=== PATIENT | female | born 1950 | race African-American/Black ===

== ENCOUNTER 2019-12-12 06:31 | Day surgery (SDC) | payer MEDICARE, SELFPAY ==
[2019-12-07 09:55] VITALS: BMI 29.4
--- NOTE | 2019-12-11 11:39 | HO.ANESPROP2 ---
Documented by User: Summer Dumont 12/11/19 11:39 HPI - Anesthesia Eval Consult details Narrative: 69yo F for Colonoscopy PMFSH Past Medical History Medical History Arthritis Asthma Elevated cholesterol HTN (hypertension) Sarcoidosis of lung Sleep apnea Venous insufficiency Surgical History Surgical History H/O colonoscopy H/O shoulder surgery History of ankle surgery History of lung surgery Hx of myomectomy Hx of tonsillectomy Social History Social History Smoking Status: Former smoker Years Smoked: 0 Smoked in Last 30 Days: No Smoking Quit Date: 1977 Patient Interested in Nicotine Replacement: No Patient Given Instructions on How to Stop Smoking: No Second Hand Smoke Exposure: No Use of substances other than those prescribed or required for medical reasons: Yes Substance Use Frequency: Occasionally Advance Directives Information Provided: No Recently lost weight without trying: No Meds Allergies Allergy/AdvReac Type Severity Reaction Status Date / Time bee pollen [BEE STINGS] Allergy Severe DIFFICULTY Verified 12/12/19 07:03 BREATHING grapefruit Allergy Severe Swelling Verified 12/07/19 10:03 Home Medications Medication Instructions Recorded Confirmed Type Lactobacillus acidophilus 1.5 mg PO DAILY 12/07/19 12/07/19 History [Probiotic Acidophilus] albuterol sulfate [ProAir 2 puff INHALATION Q6H PRN 12/07/19 12/12/19 History RespiClick] amlodipine 1 tab PO DAILY 12/07/19 12/07/19 History aspirin [Aspirin Low-Strength] 81 mg PO DAILY 12/07/19 12/12/19 History atorvastatin 1 tab PO DAILY 12/07/19 12/07/19 History cholecalciferol (vitamin D3) 50 mcg PO DAILY 12/07/19 12/07/19 History [Vitamin D3] enalapril-hydrochlorothiazide 1 tab PO DAILY 12/07/19 12/07/19 History fluticasone propionate [Flovent 1 puff INHALATION BID 12/07/19 12/07/19 History HFA] metoprolol tartrate 1 tab PO BID 12/07/19 12/07/19 History legxklpylupw-okmozxgj-vzaxol 1 tab PO DAILY 12/07/19 12/07/19 History [Centrum Silver] Exam Exam Date and Time: December 11, 2019 1139 Height,Weight and Vital Signs: Height 5 ft 7 in Weight 85.275 kg Assessment and Plan Assessment Anesthesia Assessment: Chart Reviewed Documented by User: Lin Dickson 12/12/19 07:33 [facility] Past Medical History Medical History Arthritis Asthma Elevated cholesterol HTN (hypertension) Sarcoidosis of lung Sleep apnea Venous insufficiency Surgical History Surgical History H/O colonoscopy H/O shoulder surgery History of ankle surgery History of lung surgery Hx of myomectomy Hx of tonsillectomy Social History Social History Smoking Status: Former smoker Years Smoked: 0 Smoked in Last 30 Days: No Smoking Quit Date: 1977 Patient Interested in Nicotine Replacement: No Patient Given Instructions on How to Stop Smoking: No Second Hand Smoke Exposure: No Use of substances other than those prescribed or required for medical reasons: Yes Substance Use Frequency: Occasionally Advance Directives Information Provided: No Recently lost weight without trying: No Meds Allergies Allergy/AdvReac Type Severity Reaction Status Date / Time bee pollen [BEE STINGS] Allergy Severe DIFFICULTY Verified 12/12/19 07:03 BREATHING grapefruit Allergy Severe Swelling Verified 12/07/19 10:03 Home Medications Medication Instructions Recorded Confirmed Type Lactobacillus acidophilus 1.5 mg PO DAILY 12/07/19 12/07/19 History [Probiotic Acidophilus] albuterol sulfate [ProAir 2 puff INHALATION Q6H PRN 12/07/19 12/12/19 History RespiClick] amlodipine 1 tab PO DAILY 12/07/19 12/07/19 History aspirin [Aspirin Low-Strength] 81 mg PO DAILY 12/07/19 12/12/19 History atorvastatin 1 tab PO DAILY 12/07/19 12/07/19 History cholecalciferol (vitamin D3) 50 mcg PO DAILY 12/07/19 12/07/19 History [Vitamin D3] enalapril-hydrochlorothiazide 1 tab PO DAILY 12/07/19 12/07/19 History fluticasone propionate [Flovent 1 puff INHALATION BID 12/07/19 12/07/19 History HFA] metoprolol tartrate 1 tab PO BID 12/07/19 12/07/19 History qfozqnyqvyaw-qcufzjxy-akiflt 1 tab PO DAILY 12/07/19 12/07/19 History [Centrum Silver] Exam Height,Weight and Vital Signs: Vital Signs Temp Pulse Resp BP Pulse Ox 12/12/19 07:15 97.4 F 62 16 145/65 H 97 Airway Mallampati Class: II TM Dist: >3cm Neck ROM: Full Heart: RRR Lungs: CTAB Assessment and Plan Assessment Anesthesia Assessment: Anesthesia Plan Discussed and Chart Reviewed Final Anesthetic Review ASA Class: III Final Preanesthetic Review: No Changes in Pt Med Stat, Meds/Allgs Chart Reviewed, Consent Obtained/Reviewed and Anes Risks/Benef Reviewed Patient Risk: Intermediate Procedure Risk: Low Anesthetic Plan Anesthetic Plan: MAC: Disposition: Standard PACU
[2019-12-12] MEDS: Lactated Ringers 1,000 ML 100 ML IVCONT (07:14)
[2019-12-12 07:15] VITALS: BP 145/65; PULSE 62; RESP 16; TEMP 36.3; O2SAT 97
[2019-12-12 07:17] VITALS: BMI 29.4
--- NOTE | 2019-12-12 07:33 | MHC.SHP ---
Pre-Procedural Eval Section B Chief Complaint: HX of Polyps Details of Present Illness: Colon cancer screening--hx tubular adenoma New med Metoprolol for HTN Relevant Family History (Specify if Yes): No Relevant Social History: None Present Medications: see Short Stay Collaborative assessment Medical History: Significant History (Sarcoid, Hypertension) History of Previous Operations: Relevant previous surgery/procedure and date(s) (colonoscopy 2014 WITH TUBULAR ADENOMAS) Allergies: Allergies Allergy/AdvReac Type Severity Reaction Status Date / Time bee pollen [BEE STINGS] Allergy Severe DIFFICULTY Verified 12/12/19 07:03 BREATHING grapefruit Allergy Severe Swelling Verified 12/07/19 10:03 Review of Systems Sugical H&P ROS: Negative: Constitution, Cardiovascular, Respiratory, Psychiatric and Gastrointestinal Exam Surgical H&P Exam: Normal: HEENT, Normal: Heart, Normal: Lungs, Normal: Extremities, Normal: Abdomen and Normal: Skin Plan Diagnosis/Plan: Unchanged Patient has been examined and remains a candidate for the planned procedure- yes
--- NOTE | 2019-12-12 07:38 | MHC.SHP ---
Pre-Procedural Eval Section B Chief Complaint: HX of Polyps Details of Present Illness: Colon cancer screening-2015--colo with removal tubular adenomas Patient has had no acute illnesses or medication changes since her last TV done on 09/20/19 Relevant Family History (Specify if Yes): No Relevant Social History: None Present Medications: see Short Stay Collaborative assessment Medical History: Significant History (Sarcoid, Asthma, Hypertension) History of Previous Operations: Relevant previous surgery/procedure and date(s) (Colonoscopy--2014-removal 2 Tubular adenomas.) Allergies: Allergies Allergy/AdvReac Type Severity Reaction Status Date / Time bee pollen [BEE STINGS] Allergy Severe DIFFICULTY Verified 12/12/19 07:03 BREATHING grapefruit Allergy Severe Swelling Verified 12/07/19 10:03 Review of Systems Sugical H&P ROS: Negative: Constitution, Cardiovascular, Respiratory and Gastrointestinal Exam Surgical H&P Exam: Normal: HEENT, Normal: Heart, Normal: Lungs, Normal: Extremities and Normal: Abdomen Plan Diagnosis/Plan: Unchanged Patient has been examined and remains a candidate for the planned procedure--YES
[2019-12-12 08:20] VITALS: BP 147/90; PULSE 63; RESP 12; TEMP 37.4; O2SAT 98
--- NOTE | 2019-12-12 08:20 | PM.PROC ---
Brief Operative Note Date of procedure: 12/12/19 Pre-op diagnosis: Colon cancer screening Hx of Tubular adenomas Post-op diagnosis: other (Cecal polyp, Diverticulosis, Internal Hemorrhoids.) Procedure: COLONSCOPY WITH EXCISIONAL POLYPECTOMY W/ COLD BX FORCEPS Anesthesia: MAC (NILESH ADAME) Surgeon: Margarita Maya Estimated blood loss (mL): 5 Pathology: other (CECAL POLYP) Condition: stable Disposition: PACU
[2019-12-12 08:35] VITALS: BP 142/75; PULSE 59; RESP 14; TEMP 37.4; O2SAT 99
--- NOTE | 2019-12-12 09:16 | HO.POSTANES ---
Post Anesthesia Evaluation Post Anesthesia Evaluation Vital Signs: Vital Signs Temp Pulse Resp BP Pulse Ox 12/12/19 08:35 99.4 F 59 14 142/75 H 99 12/12/19 08:20 99.4 F 63 12 147/90 H 98 12/12/19 07:15 97.4 F 62 16 145/65 H 97 Anesthesia: Monitored Mental Status: Awake Pain Control: Satisfactory Nausea/Vomiting: None Hydration: Adequate Anesthesia-Related Issues: No Anes. Related Issues
--- NOTE | 2019-12-12 17:04 | OP_ITS ---
[facility] OPERATIVE REPORT PATIENT NAME: Genevieve Leslie ? DATE OF : 1950 LOCATION: [facility] DATE OF SERVICE: 12/12/2019 PCP: OPERATIVE REPORT Page 2 SURGEON: Margarita Maya MD PREOPERATIVE DIAGNOSIS: POSTOPERATIVE DIAGNOSIS: PROCEDURE PERFORMED: ESTIMATED BLOOD LOSS: Less than 5 cc. COMPLICATIONS: None. ANESTHESIA: ANESTHESIOLOGIST: July Del Real.July Del Real. ASSISTANTS: SPECIMENS: Specimen removed, cecal polyp. CATERING TRUCK DRIVER: Margarita Maya M.D. PROCEDURES PERFORMED: Colonoscopy with excisional polypectomy x1. CONDITION: Postop, stable. FINDINGS: Digital rectal exam revealed positive sphincter tone. Video colonoscope was introduced without difficulty. It was navigated into the rectosigmoid area where there were scattered diverticula. The scope was slowly moved through the ileocecal valve and up to descending, transverse, and ascending colon down into cecum. Appendiceal orifice was seen. Ileocecal valve was seen. Prep was good to excellent. Ileocecal diminutive polyp, which was removed excisionally with cold biopsy forceps. Continuing to withdraw the scope. Good rotational views. No additional lesions . PLAN: Current recommendations, repeat asymptomatic screening will continue to be 5 years. TYPE OF ANESTHESIA: Monitored. ROAD TRAFFIC CONTROLLER: None. GRAFT OR IMPLANTS: None. Margarita Maya MD MEN/MODL / [id number] MTDGuanaco
--- NOTE | 2020-03-04 17:04 | OP_ITS ---
SURGEON: Margarita Maya MD PREOPERATIVE DIAGNOSIS: Hx of Tubular Adenomas, Colon cancer screening. POSTOPERATIVE DIAGNOSIS: Cecal polyp; Hx of tubular adenomas PROCEDURE PERFORMED: Colonoscopy with excisional polypectomy ESTIMATED BLOOD LOSS: Less than 5 cc. COMPLICATIONS: None. ANESTHESIA: Monitored ANESTHESIOLOGIST: July Del Real CRNA ASSISTANTS:NONE SPECIMENS: Specimen removed, cecal polyp. SHREDDED FILLER CIGAR MAKER MACHINE: Margarita Maya M.D. PROCEDURES PERFORMED: Colonoscopy with excisional polypectomy x1. CONDITION: Postop, stable. FINDINGS: Digital rectal exam revealed positive sphincter tone. Video colonoscope was introduced without difficulty. It was navigated into the rectosigmoid area where there were scattered diverticula. The scope was slowly moved through the ileocecal valve and up to descending, transverse, and ascending colon down into cecum. Appendiceal orifice was seen. Ileocecal valve was seen. Prep was good to excellent. Cecal diminutive polyp, which was removed excisionally with cold biopsy forceps. Continuing to withdraw the scope. Good rotational views. No additional lesions were encountered. PLAN: Current recommendations, repeat asymptomatic screening will continue to be 5 years. GRAFT OR IMPLANTS: None. Margarita Maya MD MEN/MODL / [id number] MTDD
== END 2019-12-12 09:30 | disposition home or self-care (01) ==
PROVIDERS: Visit Provider Internal Medicine Gastroenterology
PROC: 0DJD8ZZ Inspection of Lower Intestinal Tract, Via Natural or Artificial Opening Endoscopic (ICD-10-PCS; CPT 45378; principal; 2019-12-12 07:30)
DX: Z12.11 Encounter for screening for malignant neoplasm of colon (principal); Z86.010 Personal history of colon polyps; D12.0 Benign neoplasm of cecum; K57.30 Diverticulosis of large intestine without perforation or abscess without bleeding; K64.8 Other hemorrhoids; I10 Essential (primary) hypertension; J45.909 Unspecified asthma, uncomplicated; Z87.09 Personal history of other diseases of the respiratory system; E78.00 Pure hypercholesterolemia, unspecified; G47.30 Sleep apnea, unspecified; Z79.51 Long term (current) use of inhaled steroids; Z79.82 Long term (current) use of aspirin; Z79.899 Other long term (current) drug therapy; Z87.891 Personal history of nicotine dependence
CPT/HCPCS: 45380; 88305

== ENCOUNTER → 2020-01-03 09:21 | Outpatient (BNVA) | payer MEDICARE, SELFPAY | PROVIDERS: PCP Internal Medicine; Referring Provider Internal Medicine; Visit Provider Physician Assistant | DX: D12.0 Benign neoplasm of cecum (principal); K64.8 Other hemorrhoids; K57.30 Diverticulosis of large intestine without perforation or abscess without bleeding; Z98.890 Other specified postprocedural states | CPT/HCPCS: Q3014 ==

== ENCOUNTER 2020-08-08 10:21 | Outpatient (REF) | payer MEDICARE, SELFPAY ==
--- NOTE | ~2020-08-08 | MM_ITS ---
EXAMINATION: MM SCREENING DIGITAL BREAST TOMOSYNTHESIS, BILATERAL CLINICAL INFORMATION: Screening. Asymptomatic. The lifetime risk of breast cancer based on the Tyrer-Cuzick Model is 6%. COMPARISON: Mammography: 06/02/2018, 04/15/2017, 11/25/2015; targeted right breast ultrasound 04/23/2017 TECHNIQUE: Digital breast tomosynthesis is performed in both the craniocaudal and mediolateral oblique views along with computer-aided detection (CAD). Synthesized 2D images are generated from the tomosynthesis. FINDINGS: There are scattered areas of fibroglandular density (ACR BI-RADS breast composition Category b). There is scattered fine benign appearing circumscribed nodularity. There is no significant mass or architectural abnormality or abnormal calcifications. Biopsy clip marker again noted anterior upper outer right breast. The axilla and skin contours are unremarkable. No significant changes. MM/MM tomosynthesis screening BI IMPRESSION: No mammographic evidence of malignancy. ASSESSMENT: BI-RADS 2: Benign RECOMMENDATION: Routine annual mammography screening. This patient's information was entered into a reminder system with a target due date for their next mammogram.
== END 2020-08-08 10:22 | disposition home or self-care (01) ==
LOC: HO.MAMMO 10:21
PROVIDERS: PCP Internal Medicine; Visit Provider Internal Medicine
DX: Z12.31 Encounter for screening mammogram for malignant neoplasm of breast (principal)
CPT/HCPCS: 77063; 77067

== ENCOUNTER 2021-08-11 09:26 | Outpatient (REF) | payer MEDICARE, SELFPAY ==
--- NOTE | ~2021-08-11 | MM_ITS ---
EXAMINATION: MM SCREENING DIGITAL BREAST TOMOSYNTHESIS, BILATERAL CLINICAL INFORMATION: Screening. Asymptomatic. The lifetime risk of breast cancer based on the Tyrer-Cuzick Model is 5%. COMPARISON: Mammography: 08/08/2020, 06/02/2018, 04/15/2017; ultrasound right breast 04/23/2017 and 09/11/2014 TECHNIQUE: Digital breast tomosynthesis is performed in both the craniocaudal and mediolateral oblique views along with computer-aided detection (CAD). Synthesized 2D images are generated from the tomosynthesis. FINDINGS: There are scattered areas of fibroglandular density (ACR BI-RADS breast composition Category b). There is scattered fine waxing and waning nodularity right breast. No interval dominant mass or architectural abnormality. There is biopsy clip marker again seen periareolar upper outer right breast. No abnormal calcifications. The axilla and skin contours are unremarkable. MM/MM tomosynthesis screening BI IMPRESSION: No significant changes from prior exam. ASSESSMENT: BI-RADS 2: Benign RECOMMENDATION: Routine annual mammography screening. This patient's information was entered into a reminder system with a target due date for their next mammogram.
== END 2021-08-11 09:27 | disposition home or self-care (01) ==
LOC: HO.MAMMO 09:26
PROVIDERS: PCP Internal Medicine; Visit Provider Internal Medicine
DX: Z12.31 Encounter for screening mammogram for malignant neoplasm of breast (principal)
CPT/HCPCS: 77063; 77067